=== PATIENT | male | born 1955 | race Caucasian/White ===

== ENCOUNTER 2021-05-16 11:15 | Inpatient (IN) | payer MEDICARE ==
[~2021-05-16] VITALS: Ht 172.7 cm; Wt 69.5 kg
[2021-05-16] MEDS ORDERED: Depakote500 MG PO (11:55)
[2021-05-16] MEDS ORDERED: DULCOLAX10 M1 R (11:56)
[2021-05-16] MEDS ORDERED: EXELON1 EACH T (11:58)
[2021-05-16] MEDS ORDERED: FLEET MINERAL133 ML R (11:59)
[2021-05-16] MEDS ORDERED: FLOMAX0.4 MG PO (12:00)
[2021-05-16] MEDS ORDERED: MILK OF MA400 MG/5 M PO (12:02)
[2021-05-16] MEDS ORDERED: PAXIL10 MG PO (12:04)
[2021-05-16] MEDS ORDERED: RISPERDAL0.5 MG PO (12:06)
[2021-05-16] MEDS ORDERED: VISTARIL50 MG PO (12:07)
[2021-05-16] MEDS ORDERED: VITAMIN D325 MCG PO (12:08)
[2021-05-16 13:14] VITALS: BP 115/59
[2021-05-16 17:02] LABS: BILIRUBIN Negative (Negative); BLOOD Negative (Negative); CLARITY Clear (Clear); COLOR Yellow (Yellow); GLUCOSE Negative (Negative); KETONE Trace (Negative); LEUKO ESTERASE 1+ (Negative); NITRITE Negative (Negative); PH 5.5 (4.5-8.0); SPECIFIC GRAVITY 1.025 (1.001-1.030)
[2021-05-16 18:51] LABS: BACTERIA 2+; EPITHELIAL CELLS 0-2; MUCOUS TRACE; RBC 0-2 rbc/hpf (0-2)
[2021-05-16 20:00] VITALS: BP 104/60
[2021-05-17 06:28] LABS: ALBUMIN 2.9 gm/dl (3.1-4.5); ALKALINE PHOSPHATASE 53 U/L (45-117); BUN 17 mg/dl (7-24); CHLORIDE 109 mmol/L (98-107); CHOLESTEROL 134 mg/dL (<200); CREATININE 0.99 mg/dL (0.70-1.30); LDL CHOLESTEROL 81 mg/dL (9-159); POTASSIUM 4.2 mmol/L (3.5-5.1); SGOT/AST 17 IU/L (3-35); SGPT/ALT 20 U/L (12-78); SODIUM 141 mmol/L (136-145); TRIGLYCERIDES 56 mg/dl (<150)
[2021-05-17 06:31] LABS: BASO % 0.6 % (0.0-1.0); EOS # 0.3 10*3/uL (0.0-0.4); EOS % 4.9 % (1.0-4.0); HEMATOCRIT 40.4 % (42.0-52.0); LYMPH # 1.4 10*3/uL (1.3-4.4); LYMPH % 25.4 % (27.0-41.0); MEAN CELL VOLUME 92.2 fl (80.0-94.0); MEAN CORPUSCULAR HGB 28.5 pg (27.0-31.0); MEAN CORPUSCULAR HGB CONC 30.9 g/dl (33.0-37.0); MEAN PLATELET VOLUME 10.3 fl (9.6-12.3); MONO # 0.7 10*3/uL (0.1-1.0); MONO % 12.8 % (3.0-9.0); NEUT % 56.1 % (47.0-73.0); PLATELET COUNT AUTOMATED 200 10*3/uL (130-400); RED BLOOD COUNT 4.38 10*6/uL (4.50-5.90); RED CELL DISTRI WIDTH 15.3 % (0-14.5); WHITE BLOOD COUNT 5.3 10*3/uL (4.8-10.8)
[2021-05-17 06:34] LABS: VALPROIC ACID (DEPAKENE) 90.2 ug/ml (50-100)
[2021-05-17 07:48] VITALS: BP 104/76
[2021-05-17 09:48] LABS: VITAMIN D, 25-HYDROXY 36.3 ng/mL (30-100)
[2021-05-17 20:00] VITALS: BP 136/56
[2021-05-18 07:20] VITALS: BP 140/84
[2021-05-18 20:00] VITALS: BP 134/79
[2021-05-19 07:02] VITALS: BP 140/78
[2021-05-19 20:15] VITALS: BP 142/80
[2021-05-20 07:35] VITALS: BP 138/78
[2021-05-20 19:56] VITALS: BP 136/74
[2021-05-21 07:20] VITALS: BP 116/79
[2021-05-21 20:00] VITALS: BP 139/88
[2021-05-22 07:25] VITALS: BP 153/66
[2021-05-22 20:00] VITALS: BP 141/84
[2021-05-23 07:57] VITALS: BP 102/82
[2021-05-23 20:00] VITALS: BP 109/80
[2021-05-24 07:37] VITALS: BP 106/78
[2021-05-24 20:00] VITALS: BP 116/81
[2021-05-25 07:47] VITALS: BP 115/89
[2021-05-25 20:00] VITALS: BP 132/84
[2021-05-26 07:32] VITALS: BP 114/75
[2021-05-26 20:00] VITALS: BP 123/82
[2021-05-27 07:18] VITALS: BP 112/80
[2021-05-27 20:00] VITALS: BP 136/73
[2021-05-28 07:07] VITALS: BP 140/89
[2021-05-28 20:00] VITALS: BP 135/77
[2021-05-29 07:19] VITALS: BP 120/69
[2021-05-29 20:00] VITALS: BP 148/83
[2021-05-30 07:34] VITALS: BP 137/80
[2021-05-30 09:47] LABS: BASO % 0.8 % (0.0-1.0); EOS # 0.2 10*3/uL (0.0-0.4); EOS % 4.2 % (1.0-4.0); HEMATOCRIT 46.5 % (42.0-52.0); LYMPH # 1.3 10*3/uL (1.3-4.4); LYMPH % 25.7 % (27.0-41.0); MEAN CELL VOLUME 89.8 fl (80.0-94.0); MEAN CORPUSCULAR HGB 28.6 pg (27.0-31.0); MEAN CORPUSCULAR HGB CONC 31.8 g/dl (33.0-37.0); MEAN PLATELET VOLUME 9.8 fl (9.6-12.3); MONO # 0.6 10*3/uL (0.1-1.0); NEUT # 2.8 10*3/uL (2.3-7.9); NEUT % 56.9 % (47.0-73.0); PLATELET COUNT AUTOMATED 226 10*3/uL (130-400); RED BLOOD COUNT 5.18 10*6/uL (4.50-5.90); RED CELL DISTRI WIDTH 13.9 % (0-14.5)
[2021-05-30 10:12] LABS: ALBUMIN 3.1 gm/dl (3.1-4.5); ALKALINE PHOSPHATASE 62 U/L (45-117); BUN 17 mg/dl (7-24); CHLORIDE 105 mmol/L (98-107); CREATININE 1.13 mg/dL (0.70-1.30); SGOT/AST 20 IU/L (3-35); SGPT/ALT 23 U/L (12-78); SODIUM 136 mmol/L (136-145); TOTAL PROTEIN 7.8 gm/dL (6.4-8.2)
[2021-05-30 20:00] VITALS: BP 138/78
[2021-05-30 20:03] VITALS: BP 117/80
[2021-05-31 07:45] VITALS: BP 111/69
[2021-05-31 20:00] VITALS: BP 118/77
[2021-06-01 07:17] VITALS: BP 124/68
[2021-06-01 20:00] VITALS: BP 129/78
[2021-06-02 07:58] VITALS: BP 120/62
[2021-06-02 20:00] VITALS: BP 141/82
[2021-06-03 07:59] VITALS: BP 142/84
[2021-06-03 10:19] LABS: BASO # 0.1 10*3/uL (0.0-0.1); BASO % 0.9 % (0.0-1.0); EOS # 0.2 10*3/uL (0.0-0.4); EOS % 3.7 % (1.0-4.0); HEMATOCRIT 42.3 % (42.0-52.0); LYMPH # 1.7 10*3/uL (1.3-4.4); LYMPH % 25.3 % (27.0-41.0); MEAN CORPUSCULAR HGB 29.2 pg (27.0-31.0); MEAN CORPUSCULAR HGB CONC 31.4 g/dl (33.0-37.0); MEAN PLATELET VOLUME 10.1 fl (9.6-12.3); MONO # 0.8 10*3/uL (0.1-1.0); MONO % 11.5 % (3.0-9.0); NEUT # 3.8 10*3/uL (2.3-7.9); NEUT % 58.3 % (47.0-73.0); PLATELET COUNT AUTOMATED 196 10*3/uL (130-400); RED BLOOD COUNT 4.55 10*6/uL (4.50-5.90); RED CELL DISTRI WIDTH 14.1 % (0-14.5); WHITE BLOOD COUNT 6.5 10*3/uL (4.8-10.8)
[2021-06-03 10:34] LABS: ALKALINE PHOSPHATASE 59 U/L (45-117); BUN 10 mg/dl (7-24); CHLORIDE 106 mmol/L (98-107); CREATININE 0.87 mg/dL (0.70-1.30); POTASSIUM 3.7 mmol/L (3.5-5.1); SGOT/AST 25 IU/L (3-35); SGPT/ALT 23 U/L (12-78); SODIUM 137 mmol/L (136-145); TOTAL PROTEIN 7.5 gm/dL (6.4-8.2)
[2021-06-03 20:00] VITALS: BP 123/72
[2021-06-04 07:19] VITALS: BP 135/81
[2021-06-04 20:00] VITALS: BP 140/78
[2021-06-05 07:47] VITALS: BP 140/76
[2021-06-05 20:00] VITALS: BP 103/85
[2021-06-06 07:27] VITALS: BP 144/88
[2021-06-06 20:00] VITALS: BP 121/67
[2021-06-07 07:32] VITALS: BP 142/84
[2021-06-07] MEDS ORDERED: FUROSEMIDE20 M1 PO (08:11)
[2021-06-07] MEDS ORDERED: MEMANTINE HCL10 MG PO (10:11)
[2021-06-07] MEDS ORDERED: QUETIAPINE FUM100 M3 PO ×2 (10:11)
[2021-06-07] MEDS ORDERED: RIVASTIGMINE1 EAC2 T (10:11)
[2021-06-07] MEDS ORDERED: TRIHEXYPHENIDYL2 M3 PO (10:11)
[2021-06-07] MEDS ORDERED: LACTULOSE20 GM/30 M PO (10:11)
== END 2021-06-07 12:34 | DRG 883 ==
LOC: 3N 11:15
PROVIDERS: Counselor Professional; ADMIT Psychiatry & Neurology Psychiatry; ATTEND Psychiatry & Neurology Psychiatry
PROC: 0HBRXZZ Excision of Toe Nail, External Approach (ICD-10-PCS; principal; 2021-05-18)
PROC: 0HBRXZZ Excision of Toe Nail, External Approach (ICD-10-PCS; 2021-05-18)
PROC: 0HBRXZZ Excision of Toe Nail, External Approach (ICD-10-PCS; 2021-05-18)
PROC: 0HBRXZZ Excision of Toe Nail, External Approach (ICD-10-PCS; 2021-05-18)
PROC: 0HBRXZZ Excision of Toe Nail, External Approach (ICD-10-PCS; 2021-05-18)
PROC: 0HBRXZZ Excision of Toe Nail, External Approach (ICD-10-PCS; 2021-05-18)
PROC: 0HBRXZZ Excision of Toe Nail, External Approach (ICD-10-PCS; 2021-05-18)
PROC: 0HBRXZZ Excision of Toe Nail, External Approach (ICD-10-PCS; 2021-05-18)
PROC: 0HBRXZZ Excision of Toe Nail, External Approach (ICD-10-PCS; 2021-05-18)
PROC: 0HBRXZZ Excision of Toe Nail, External Approach (ICD-10-PCS; 2021-05-18)
DX: F63.81 Intermittent explosive disorder (principal); U07.1 COVID-19; N39.0 Urinary tract infection, site not specified; E44.0 Moderate protein-calorie malnutrition; G30.9 Alzheimer's disease, unspecified; F02.80 Dementia in other diseases classified elsewhere, unspecified severity, without behavioral disturbance, psychotic disturbance, mood disturbance, and anxiety; I10 Essential (primary) hypertension; F28 Other psychotic disorder not due to a substance or known physiological condition; B35.1 Tinea unguium; N40.1 Benign prostatic hyperplasia with lower urinary tract symptoms; D64.9 Anemia, unspecified; R41.0 Disorientation, unspecified; Z68.23 Body mass index [BMI] 23.0-23.9, adult; Z88.6 Allergy status to analgesic agent; Z79.899 Other long term (current) drug therapy